=== PATIENT | female | born 1975 | race Caucasian/White ===

== ENCOUNTER 2019-04-18 02:14 | Emergency (ER) | payer SELFPAY ==
[~2019-04-18] VITALS: Ht 165.1 cm; Wt 83.9 kg
[~2019-04-18 02:14] MED LIST: FLUT9.9S NS; MULT1TAB52 PO
[2019-04-18 02:33] LABS: BILIRUBIN,URINE NEGATIVE (NEG); CLARITY,URINE CLEAR; COLOR,URINE YELLOW; NITRITE,URINE NEGATIVE (NEG); PH,URINE 5.5; PROTEIN,URINE NEGATIVE (NEG-TRACE); UROBILINOGEN,URINE 0.2 mg/dL (0.2 mg/dL)
[2019-04-18 02:45] VITALS: BP 148/78
[2019-04-18 03:11] LABS: BACTERIA,URINE FEW /HPF (0-FEW); RBC,URINE 0 /HPF (0-2); WBC,URINE OCC /HPF (0-4)
[2019-04-18 03:12] LABS: SQUAMOUS EPITHELIAL CELL,UR MOD /LPF
[2019-04-18] MEDS ORDERED: PHEN100T82 PO (03:32)
--- NOTE | 2019-04-18 03:33 | PHYS DOC ---
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 Past Surgical History: Cholecystectomy, Hysterectomy, Tubal ligation Alcohol Use: None Drug Use: None Adult General Chief Complaint Chief Complaint: PAIN ON URINATION [facility] Patient is a 43 year old female who presents with complaining of pain for urination. Patient complaining of urinary symptoms for one week with urinary frequency and dysuria and states she had left sided abdominal pain since yesterday as a constant pain associated with nausea without radiation to her back. Patient denies chills, vaginal bleeding or discharge, new sexual partner. Patient has history of hysterectomy. Review of Systems Review of Systems Constitutional: Denies fever or chills [] Eyes: Denies change in visual acuity, redness, or eye pain [] HENT: Denies nasal congestion or sore throat [] Respiratory: Denies cough or shortness of breath [] Cardiovascular: No additional information not addressed in HPI [] GI: Reports abdominal pain, nausea, denies vomiting, bloody stools or diarrhea [] : Reports dysuria and frequency, denies hematuria [] Musculoskeletal: Denies back pain or joint pain [] Integument: Denies rash or skin lesions [] Neurologic: Denies headache, focal weakness or sensory changes [] Endocrine: Denies polyuria or polydipsia [] All other systems were reviewed and found to be within normal limits, except as documented in this note. Allergies Allergies Allergies Coded Allergies Type Severity Reaction Last Updated Verified codeine Allergy Intermediate RASH 12/21/15 Yes morphine Allergy Intermediate SOA 12/21/15 Yes tramadol Allergy Mild CONFUSED 12/21/15 Yes Physical Exam Physical Exam Constitutional: Well developed, well nourished, no acute distress, non-toxic appearance. [] HENT: Normocephalic, atraumatic, oropharynx moist. Eyes: PERRLA, EOMI, conjunctiva normal, no discharge. [] Neck: Normal range of motion, no tenderness, supple, no stridor. [] Cardiovascular:Heart rate regular rhythm, no murmur [] Lungs & Thorax: Bilateral breath sounds clear to auscultation [] Abdomen: Bowel sounds normal, soft, no tenderness, no masses, no pulsatile ma sses. [] Skin: Warm, dry, no erythema, no rash. [] Back: No tenderness, no CVA tenderness. [] Extremities: No tenderness, no cyanosis, no clubbing, ROM intact, no edema. [] Neurologic: Alert and oriented X 3, no focal deficits noted. [] Psychologic: Affect normal. Current Patient Data Lab Values Laboratory Tests Test 04/18/19 02:23 04/18/19 02:27 Urine Collection Type Unknown Urine Color Yellow Urine Clarity Clear Urine pH 5.5 Urine Specific [place] 1.015 Urine Protein Negative mg/dL (NEG-TRACE) Urine Glucose (UA) Negative mg/dL (NEG) Urine Ketones (Stick) Negative mg/dL (NEG) Urine Blood Negative (NEG) Urine Nitrite Negative (NEG) Urine Bilirubin Negative (NEG) Urine Urobilinogen Dipstick 0.2 mg/dL (0.2 mg/dL) Urine Leukocyte Esterase Negative (NEG) Urine RBC 0 /HPF (0-2) Urine WBC Occ /HPF (0-4) Urine Squamous Epithelial Cells Mod /LPF Urine Bacteria Few /HPF (0-FEW) Urine Mucus Mod /LPF POC Urine HCG, Qualitative Hcg negative (Negative) EKG EKG [] Radiology/Procedures Radiology/Procedures [] Course & Med Decision Making Course & Med Decision Making Pertinent Labs reviewed. (See chart for details) Evaluation of patient in ER showed 43-year-old female patient with complaining of urinary frequency and dysuria and left sided abdominal pain for 1 week. Patient is not taking medication at home and doesn't want to have pain medication in ER. Patient had unremarkable physical exam and UA. Plan discharge patient home with diagnose of dysuria. Dragon Disclaimer Dragon Disclaimer This electronic medical record was generated, in whole or in part, using a voice recognition dictation system. Departure Departure Impression: Primary Impression: Dysuria Disposition: HOME, SELF-CARE (at 0330) Condition: STABLE Referrals: NO PCP (PCP) CLARA GREGG MD Patient Instructions: Dysuria Additional Instructions: Drink plenty of liquids Follow-up with your primary care physician in 3-5 days Return to ER if not getting better Follow-up with on-call urologist if not getting better Scripts Phenazopyridine Hcl (PYRIDIUM) 100 Mg Tablet 100 MG PO TID for dysuria, #10 TAB Prov: GOYO TOBAR MD 04/18/19 GOYO TOBAR MD Apr 18, 2019 03:33
== END 2019-04-18 04:23 | disposition home or self-care (01) ==
LOC: ER 02:14
DX: R30.0 Dysuria (principal); R35.0 Frequency of micturition; R10.9 Unspecified abdominal pain; R11.0 Nausea; F41.9 Anxiety disorder, unspecified; Z90.49 Acquired absence of other specified parts of digestive tract; Z90.710 Acquired absence of both cervix and uterus; Z98.51 Tubal ligation status; Z88.5 Allergy status to narcotic agent
CPT/HCPCS: 81001; 81025; 99283

== ENCOUNTER 2020-02-21 21:13 | Emergency (ER) | payer SELFPAY ==
[~2020-02-21] VITALS: Ht 165.1 cm; Wt 85.0 kg
[~2020-02-21 21:13] MED LIST changes: +MULT-445 PO; -MULT1TAB52 PO; +PHEN100T82 PO
[2020-02-21 21:52] VITALS: BP 145/90
[2020-02-21] MEDS ORDERED: LIDOCAINE 1% PF 2 ML VIAL. INJ ONE (23:45)
[2020-02-22] MEDS ORDERED: CLIN150C14 PO (00:04)
--- NOTE | 2020-02-22 00:04 | PHYS DOC ---
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 Past Surgical History: Cholecystectomy, Hysterectomy, Tubal ligation Smoking Status: Never Smoker Alcohol Use: None Drug Use: None General Adult EDM: Chief Complaint: SKIN PROBLEM HPI: HPI: Patient is a 44 year old female who presents for evaluation of a left arm abscess and a developing left buttock abscess. Symptoms been progressing over the past several days. She tried to open the buttock abscess with no success. The one on the arm will clearly need incision and drainage. There is no reported fevers or chills or other complaints. Review of Systems: Review of Systems: Constitutional: Denies fever or chills. [] Eyes: Denies change in visual acuity. [] HENT: Denies nasal congestion or sore throat. [] Respiratory: Denies cough or shortness of breath. [] Cardiovascular: Denies chest pain or edema. [] GI: Denies abdominal pain, nausea, vomiting, bloody stools or diarrhea. [] : Denies dysuria. [] Musculoskeletal: Denies back pain or joint pain. [] Integument: Denies rash, abscess left arm and buttock. [] Neurologic: Denies headache, focal weakness or sensory changes. [] Endocrine: Denies polyuria or polydipsia. [] Lymphatic: Denies swollen glands. [] Psychiatric: Denies depression or anxiety. [] Heart Score: Risk Factors: Risk Factors: DM, Current or recent (<one month) smoker, HTN, HLP, family history of CAD, obesity. Risk Scores: Score 0 - 3: 2.5% MACE over next 6 weeks - Discharge Home Score 4 - 6: 20.3% MACE over next 6 weeks - Admit for Clinical Observation Score 7 - 10: 72.7% MACE over next 6 weeks - Early Invasive Strategies Current Medications: Current Medications Medications (Trade) Dose Ordered Sig/Jose Start Time Stop Time Status Last Admin Dose Admin Lidocaine HCl (Xylocaine-Mpf 1% 2ml Vial) 5 ml 1X ONCE 02/21/20 23:45 02/21/20 23:46 DC 02/21/20 23:45 5 ML Allergies: Allergies: Allergies Coded Allergies Type Severity Reaction Last Updated Verified codeine Allergy Intermediate RASH 12/21/15 Yes morphine Allergy Intermediate SOA 12/21/15 Yes tramadol Allergy Mild CONFUSED 12/21/15 Yes Physical Exam: PE: Constitutional: Well developed, well nourished, mild acute distress, non-toxic appearance. [] HENT: Normocephalic, atraumatic, bilateral external ears normal, oropharynx m oist, no oral exudates, nose normal. [] Eyes: PERRL, EOMI, conjunctiva normal, no discharge. [] Neck: Normal range of motion, no tenderness, supple, no stridor. [] Cardiovascular:Heart rate regular rhythm, murmur [] Lungs & Thorax: Bilateral breath sounds clear to auscultation [] Abdomen: Bowel sounds normal, soft, no tenderness, no masses. [] Skin: Warm, dry, no erythema, no rash, 1 cm abscess left arm, flattened area of cellulitis with no central fluctuant area left buttock. [] Back: No tenderness, no CVA tenderness. [] Extremities: No tenderness, no cyanosis, no clubbing, ROM intact, no edema. [] Neurologic: Alert and oriented, normal motor function, normal sensory function, no focal deficits noted. [] Psychologic: Affect normal, judgement normal, mood normal. [] Current Patient Data: Vital Signs: Vital Signs Date Time Temp Pulse Resp B/P (MAP) Pulse Ox O2 Delivery O2 Flow Rate FiO2 02/21/20 21:52 99.0 106 16 145/90 (108) 98 Room Air 99.0 EKG: EKG: [] Radiology/Procedures: Radiology/Procedures: [] Course & Med Decision Making: Course & Med Decision Making Pertinent Labs and Imaging studies reviewed. (See chart for details) [] Dragon Disclaimer: Dragon Disclaimer: This electronic medical record was generated, in whole or in part, using a voice recognition dictation system. Left arm abscess incised and drained in the ER, no packing needed, wound thoroughly cleaned and patient placed on clindamycin Departure Departure Impression: Primary Impression: Abscess of left arm Additional Impression: Cellulitis of buttock Disposition: HOME, SELF-CARE Condition: STABLE Referrals: NO PCP (PCP) Patient Instructions: Abscess, Care After, Cellulitis Additional Instructions: Hot compresses to both abscess sites, take antibiotic as directed, have your doctor recheck wound in the next 2 to 3 days, return if worsen Scripts Clindamycin Hcl (CLINDAMYCIN HCL) 150 Mg Capsule 1 CAP PO QID, #28 CAP Prov: JAVIER JESSICA DO 02/22/20 Justicifation of Admission Dx: Justifications for Admission: Justification of Admission Dx: N/A Procedure Note Procedure: Incision and drainage left forearm abscess. Lidocaine 1% used to numb area. An 11 blade scalpel was used to make a 0.5 cm incision. Site was prepped with Bet adine before procedure. It was also thoroughly cleaned with saline after the procedure. Approximately 2 cc of pus obtained. Wound was not packed. Pressure dressing applied. Detailed wound instructions given JAVIER JESSICA DO Feb 22, 2020 00:04
== END 2020-02-22 00:07 | disposition home or self-care (01) ==
LOC: ER 21:13
DX: L02.414 Cutaneous abscess of left upper limb (principal); L02.31 Cutaneous abscess of buttock; Z88.5 Allergy status to narcotic agent; Z88.6 Allergy status to analgesic agent
CPT/HCPCS: 10060; 99283; J3490